=== PATIENT | female | born 1940 | race Caucasian/White ===

== ENCOUNTER 2022-03-21 13:35 | Inpatient (IN) | payer OTHER, MEDICAID ==
[~2022-03-21] VITALS: Ht 157.5 cm; Wt 80.5 kg
[2022-03-21 14:04] VITALS: BP_SYST 103
[2022-03-21] MEDS ORDERED: DULO60CA42 PO (15:28)
[2022-03-21] MEDS ORDERED: PRO40 PO (15:28)
[2022-03-21] MEDS ORDERED: DICL100G19 (15:28)
[2022-03-21] MEDS ORDERED: [UNRECOGNIZED DRUG - CODE] PO (15:28)
[2022-03-21] MEDS ORDERED: LOSA100T3 PO (15:28)
[2022-03-21] MEDS ORDERED: GLIM1TAB PO (15:28)
[2022-03-21] MEDS ORDERED: MAGN400C PO (15:28)
[2022-03-21] MEDS ORDERED: CALC-1312 PO (15:28)
[2022-03-21] MEDS ORDERED: ACET325C6 PO (15:28)
[2022-03-21] MEDS ORDERED: NEOM10DR11 EACH EAR (15:28)
[2022-03-21] MEDS ORDERED: HYG25 PO (15:28)
[2022-03-21] MEDS ORDERED: ISOS30TA9 PO (15:28)
[2022-03-21] MEDS ORDERED: VIT-10 PO (15:28)
[2022-03-21] MEDS ORDERED: TRAM50TA2 (15:28)
[2022-03-21] MEDS ORDERED: IRON PO (15:28)
[2022-03-21] MEDS ORDERED: ROSU10TA2 PO (15:28)
[2022-03-21] MEDS ORDERED: SITA50TA3 PO (15:28)
[2022-03-21] MEDS ORDERED: RESEYE EACH EYE (15:28)
[2022-03-21] MEDS ORDERED: ASPI-524 PO (15:28)
[2022-03-21] MEDS ORDERED: CHOL400T12 PO (15:28)
[2022-03-21] MEDS ORDERED: CYAN250010 (15:28)
[2022-03-21] MEDS ORDERED: APIX2.5T PO (15:28)
[2022-03-21] MEDS ORDERED: KETOROLAC TROMETHAMINE 30 MG VIAL IVP ONE (16:15)
[2022-03-21 16:36] LABS: BASOPHILS % (AUTO) 0.1 % (0.0-2.0); EOSINOPHILS # (AUTO) 0.3 K/uL (0.0-0.4); EOSINOPHILS % (AUTO) 1.4 % (0.0-4.0); HEMATOCRIT 31.4 % (36-48); HEMOGLOBIN 10.5 g/dL (12.0-16.0); LYMPHOCYTES # (AUTO) 1.3 K/uL (1.0-5.5); LYMPHOCYTES % (AUTO) 6.8 % (20.5-51.5); MEAN CORPUSCULAR HEMOGLOBIN 28 pg (27-31); MEAN CORPUSCULAR HGB CONC 34 % (32-36); MEAN CORPUSCULAR VOLUME 83 fL (79.0-98.0); MONOCYTES # (AUTO) 0.9 K/uL (0.0-1.0); MONOCYTES % (AUTO) 4.6 % (1.7-9.3); NEUTROPHILS # (AUTO) 16.9 K/uL (1.8-7.7); NEUTROPHILS % (AUTO) 87.1 % (40.0-70.0); PLATELET COUNT (AUTO) 137 K/uL (130-430); RED CELL DISTRIBUTION WIDTH 14.6 % (9.0-15.0); WHITE BLOOD COUNT (AUTO) 19.4 K/uL (4.8-10.8)
[2022-03-21 16:40] LABS: ANION GAP 18 (5-15); CALCIUM 7.6 mg/dL (8.4-11.0); CHLORIDE 92 mmol/L (98-107); CREATININE 6.13 mg/dL (0.55-1.30); GLUCOSE 255 mg/dL (70-99); POTASSIUM 3.9 mmol/L (3.5-5.1); SODIUM SERUM 127 mmol/L (136-145); UREA NITROGEN, BLOOD 91 mg/dL (8-21)
[2022-03-21 16:45] LABS: ALANINE AMINOTRANSFERASE 15 U/L (12-78); ALBUMIN 1.9 g/dL (3.4-4.8); ASPARTATE AMINOTRANSFERASE 19 U/L (10-37); TOTAL BILIRUBIN 0.6 mg/dL (0.0-1.0)
[2022-03-21 16:49] LABS: BILIRUBIN,URINE 1+ (NEGATIVE); BLOOD, URINE 3+ (NEGATIVE); CLARITY/URINE CLOUDY (CLEAR); COLOR,URINE YELLOW (YELLOW); GLUCOSE,URINE NEGATIVE (NEGATIVE); KETONES,URINE TRACE (NEGATIVE); LEUKOCYTE ESTERASE ,URINE 3+ (NEGATIVE); NITRITE, URINE NEGATIVE (NEGATIVE); PROTEIN URINE 2+ (NEGATIVE); UROBILINOGEN,URINE 0.2 (0.2-1.0)
[2022-03-21 16:53] LABS: BACTERIA,URINE MODERATE /HPF (None Seen); WBC,URINE >100 /HPF (0-3)
[2022-03-21 16:54] LABS: MUCUS,URINE None Seen /LPF (None Seen)
[2022-03-21] MEDS ORDERED: NACL 0.9% 2,000 ML IV ONE (17:15)
[2022-03-21] MEDS ORDERED: cefTRIAXone 1 GM IVPB PREMIX 50 ML IV ONE (17:15)
[2022-03-21] MEDS ORDERED: ACETAMINOPHEN 325 MG TABLET PO ONE (23:30)
[2022-03-21 23:56] VITALS: BP_SYST 101
[2022-03-22] MEDS ORDERED: NS 500 ML IV ONE (02:00)
[2022-03-22 02:02] VITALS: BP_SYST 130
[2022-03-22] MEDS: INSULIN REGULAR, HUMAN 100 UNITS/ML, 10 ML VIAL (humuLIN R) SUBCUT PRN ×2 (02:18→21:23)
[2022-03-22 07:40] VITALS: BP_SYST 104
[2022-03-22 07:41] LABS: ALANINE AMINOTRANSFERASE 15 U/L (12-78); ALBUMIN 1.9 g/dL (3.4-4.8); ANION GAP 17 (5-15); ASPARTATE AMINOTRANSFERASE 25 U/L (10-37); CALCIUM 7.8 mg/dL (8.4-11.0); CHLORIDE 96 mmol/L (98-107); GLUCOSE 125 mg/dL (70-99); POTASSIUM 3.6 mmol/L (3.5-5.1); SODIUM SERUM 129 mmol/L (136-145); TOTAL BILIRUBIN 0.5 mg/dL (0.0-1.0); UREA NITROGEN, BLOOD 98 mg/dL (8-21)
[2022-03-22 07:56] LABS: BASOPHILS # (AUTO) 0.1 K/uL (0.0-0.2)
[2022-03-22 08:06] LABS: BASOPHILS % (AUTO) 0.4 % (0.0-2.0); EOSINOPHILS # (AUTO) 0.2 K/uL (0.0-0.4); EOSINOPHILS % (AUTO) 1.2 % (0.0-4.0); HEMATOCRIT 46.2 % (36-48); HEMOGLOBIN 15.3 g/dL (12.0-16.0); LYMPHOCYTES # (AUTO) 2.3 K/uL (1.0-5.5); LYMPHOCYTES % (AUTO) 16.2 % (20.5-51.5); MEAN CORPUSCULAR HEMOGLOBIN 28 pg (27-31); MEAN CORPUSCULAR HGB CONC 33 % (32-36); MEAN CORPUSCULAR VOLUME 85 fL (79.0-98.0); MONOCYTES # (AUTO) 0.8 K/uL (0.0-1.0); NEUTROPHILS # (AUTO) 10.8 K/uL (1.8-7.7); NEUTROPHILS % (AUTO) 76.2 % (40.0-70.0); PLATELET COUNT (AUTO) 103 K/uL (130-430); RED BLOOD CELL COUNT(AUTO) 5.46 MIL/uL (4.2-6.2); RED CELL DISTRIBUTION WIDTH 15.5 % (9.0-15.0); WHITE BLOOD COUNT (AUTO) 14.2 K/uL (4.8-10.8)
[2022-03-22] MEDS ORDERED: POLYETHYLENE GLYCOL 3350, 17 GM/ POWD.PACK PO ONE (09:15)
[2022-03-22] MEDS: ASPIRIN 325 MG TABLET PO ONE ×2 (09:47→09:58)
[2022-03-22] MEDS: APIXABAN 2.5 MG TABLET PO ONE ×2 (09:50→09:58)
[2022-03-22] MEDS: PIPERACILLIN/TAZO 2.25G/DEX-IS 50 ML IV SCH ×2 (11:46→17:57)
[2022-03-22 12:00] VITALS: BP_SYST 105
[2022-03-22] MEDS: ACETAMINOPHEN 325 MG TABLET PO PRN (15:19)
[2022-03-22 16:00] VITALS: BP_SYST 117
[2022-03-22] MEDS: ALBUMIN HUMAN 5% 250 ML IV SCH (17:51)
[2022-03-22 18:19] LABS: ALBUMIN 1.8 g/dL (3.4-4.8)
[2022-03-22 20:30] VITALS: BP_SYST 111
[2022-03-22] MEDS ORDERED: APIXABAN 2.5 MG TABLET PO SCH (21:00)
[2022-03-22] MEDS: POLYETHYLENE GLYCOL 3350, 17 GM/ POWD.PACK PO SCH (21:14)
[2022-03-22] MEDS: APIXABAN 2.5 MG TABLET PO SCH (21:15)
[2022-03-23] MEDS: PIPERACILLIN/TAZO 2.25G/DEX-IS 50 ML IV SCH ×4 (00:12→18:16)
[2022-03-23 01:35] VITALS: BP_SYST 128
[2022-03-23] MEDS: ALBUMIN HUMAN 5% 250 ML IV SCH ×2 (01:51→10:01)
[2022-03-23 07:50] VITALS: BP_SYST 116
[2022-03-23 09:16] LABS: ANION GAP 14 (5-15); CALCIUM 7.3 mg/dL (8.4-11.0); CHLORIDE 96 mmol/L (98-107); CREATININE 5.14 mg/dL (0.55-1.30); GLUCOSE 106 mg/dL (70-99); POTASSIUM 3.8 mmol/L (3.5-5.1); SODIUM SERUM 127 mmol/L (136-145); UREA NITROGEN, BLOOD 99 mg/dL (8-21)
[2022-03-23 09:21] LABS: ALBUMIN 2.1 g/dL (3.4-4.8); ASPARTATE AMINOTRANSFERASE 16 U/L (10-37)
[2022-03-23] MEDS: ATORVASTATIN 20 MG TABLET PO SCH (10:00)
[2022-03-23] MEDS: ASPIRIN 81 MG TAB.CHEW PO SCH (10:00)
[2022-03-23] MEDS: POLYETHYLENE GLYCOL 3350, 17 GM/ POWD.PACK PO SCH ×2 (10:01→22:15)
[2022-03-23 10:02] LABS: ALANINE AMINOTRANSFERASE 14 U/L (12-78)
[2022-03-23] MEDS: APIXABAN 2.5 MG TABLET PO SCH ×2 (10:05→22:17)
[2022-03-23] MEDS ORDERED: NS 500 ML IV ONE (11:15)
[2022-03-23 12:10] VITALS: BP_SYST 135
[2022-03-23 12:16] LABS: BILIRUBIN,URINE NEGATIVE (NEGATIVE); BLOOD, URINE 3+ (NEGATIVE); CLARITY/URINE TURBID (CLEAR); COLOR,URINE YELLOW (YELLOW); GLUCOSE,URINE NEGATIVE (NEGATIVE); KETONES,URINE NEGATIVE (NEGATIVE); LEUKOCYTE ESTERASE ,URINE 2+ (NEGATIVE); NITRITE, URINE NEGATIVE (NEGATIVE); PROTEIN URINE NEGATIVE (NEGATIVE); UROBILINOGEN,URINE 0.2 (0.2-1.0)
[2022-03-23] MEDS: NACL 0.9% 1,000 ML IV SCH ×2 (12:45→19:15)
[2022-03-23 12:54] LABS: BACTERIA,URINE MANY /HPF (None Seen); MUCUS,URINE 1+ /LPF (None Seen); RBC,URINE 20-50 /HPF (0-3); WBC,URINE 20-50 /HPF (0-3)
[2022-03-23 14:41] LABS: BASOPHILS # (AUTO) 0.1 K/uL (0.0-0.2); BASOPHILS % (AUTO) 0.5 % (0.0-2.0); EOSINOPHILS # (AUTO) 0.2 K/uL (0.0-0.4); EOSINOPHILS % (AUTO) 1.1 % (0.0-4.0); HEMATOCRIT 28.6 % (36-48); HEMOGLOBIN 9.6 g/dL (12.0-16.0); LYMPHOCYTES # (AUTO) 1.8 K/uL (1.0-5.5); LYMPHOCYTES % (AUTO) 10.8 % (20.5-51.5); MEAN CORPUSCULAR HEMOGLOBIN 28 pg (27-31); MEAN CORPUSCULAR HGB CONC 34 % (32-36); MEAN CORPUSCULAR VOLUME 82 fL (79.0-98.0); MONOCYTES # (AUTO) 0.9 K/uL (0.0-1.0); MONOCYTES % (AUTO) 5.2 % (1.7-9.3); NEUTROPHILS # (AUTO) 13.9 K/uL (1.8-7.7); NEUTROPHILS % (AUTO) 82.4 % (40.0-70.0); PLATELET COUNT (AUTO) 151 K/uL (130-430); RED BLOOD CELL COUNT(AUTO) 3.48 MIL/uL (4.2-6.2); RED CELL DISTRIBUTION WIDTH 14.6 % (9.0-15.0); WHITE BLOOD COUNT (AUTO) 16.9 K/uL (4.8-10.8)
[2022-03-23 14:51] LABS: ANION GAP 16 (5-15); CALCIUM 8.4 mg/dL (8.4-11.0); CHLORIDE 95 mmol/L (98-107); CREATININE 4.76 mg/dL (0.55-1.30); GLUCOSE 149 mg/dL (70-99); POTASSIUM 3.8 mmol/L (3.5-5.1); SODIUM SERUM 127 mmol/L (136-145)
[2022-03-23 14:56] LABS: ALANINE AMINOTRANSFERASE 11 U/L (12-78); ALBUMIN 2.5 g/dL (3.4-4.8); ASPARTATE AMINOTRANSFERASE 15 U/L (10-37); TOTAL BILIRUBIN 1.1 mg/dL (0.0-1.0)
[2022-03-23 14:58] LABS: UREA NITROGEN, BLOOD 106 mg/dL (8-21)
[2022-03-23 16:10] VITALS: BP_SYST 130
[2022-03-23] MEDS ORDERED: HEPARIN SODIUM,PORCINE 5,000 UNITS/ML VIAL MC ONE (16:15)
[2022-03-23] MEDS ORDERED: HEPARIN SODIUM,PORCINE 5,000 UNITS/ML VIAL SUBCUT ONE (18:15)
[2022-03-23 19:00] VITALS: BP_SYST 108
[2022-03-23 20:00] VITALS: BP_SYST 108
[2022-03-23] MEDS ORDERED: HEPARIN SODIUM, PORCINE 10,000 UNITS/ 10 ML VIAL IV ONE (21:00)
[2022-03-23] MEDS ORDERED: HEPARIN SODIUM, PORCINE 10,000 UNITS/ 10 ML VIAL ONE (21:15)
[2022-03-24] VITALS: BP_SYST 144
[2022-03-24] MEDS: PIPERACILLIN/TAZO 2.25G/DEX-IS 50 ML IV SCH ×4 (00:06→17:45)
[2022-03-24] MEDS: NITROGLYCERIN 0.4 MG TAB.SUBL SL PRN ×3 (01:25→01:45)
[2022-03-24] MEDS: ACETAMINOPHEN 325 MG TABLET PO PRN (01:29)
[2022-03-24] MEDS ORDERED: NALOXONE HCL 0.4 MG/ML AMP (NARCAN) IVP PRN (02:15)
[2022-03-24] MEDS ORDERED: LORazepam 1 MG TABLET PO ONE (02:15)
[2022-03-24] MEDS: HYDROcodone/ACETAMIN 5-325 MG TAB (NORCO/ VICODIN) PO PRN (02:22)
[2022-03-24] MEDS: NACL 0.9% 1,000 ML IV SCH ×3 (03:15→22:00)
[2022-03-24 07:43] LABS: BASOPHILS # (AUTO) 0.1 K/uL (0.0-0.2); BASOPHILS % (AUTO) 0.4 % (0.0-2.0); EOSINOPHILS # (AUTO) 0.1 K/uL (0.0-0.4); HEMOGLOBIN 8.9 g/dL (12.0-16.0); LYMPHOCYTES # (AUTO) 1.3 K/uL (1.0-5.5); LYMPHOCYTES % (AUTO) 9.1 % (20.5-51.5); MEAN CORPUSCULAR HEMOGLOBIN 28 pg (27-31); MEAN CORPUSCULAR HGB CONC 34 % (32-36); MEAN CORPUSCULAR VOLUME 82 fL (79.0-98.0); MONOCYTES # (AUTO) 0.9 K/uL (0.0-1.0); MONOCYTES % (AUTO) 6.3 % (1.7-9.3); NEUTROPHILS # (AUTO) 12.1 K/uL (1.8-7.7); NEUTROPHILS % (AUTO) 83.2 % (40.0-70.0); PLATELET COUNT (AUTO) 161 K/uL (130-430); RED BLOOD CELL COUNT(AUTO) 3.16 MIL/uL (4.2-6.2); RED CELL DISTRIBUTION WIDTH 14.4 % (9.0-15.0); WHITE BLOOD COUNT (AUTO) 14.5 K/uL (4.8-10.8)
[2022-03-24] MEDS: APIXABAN 2.5 MG TABLET PO SCH ×2 (08:06→22:40)
[2022-03-24] MEDS: ASPIRIN 81 MG TAB.CHEW PO SCH (08:07)
[2022-03-24] MEDS: POLYETHYLENE GLYCOL 3350, 17 GM/ POWD.PACK PO SCH ×2 (08:07→22:38)
[2022-03-24] MEDS: ATORVASTATIN 20 MG TABLET PO SCH (08:07)
[2022-03-24 08:26] LABS: ALANINE AMINOTRANSFERASE 12 U/L (12-78); ANION GAP 10 (5-15); ASPARTATE AMINOTRANSFERASE 16 U/L (10-37); CALCIUM 7.3 mg/dL (8.4-11.0); CHLORIDE 102 mmol/L (98-107); CREATININE 3.05 mg/dL (0.55-1.30); GLUCOSE 140 mg/dL (70-99); PHOSPHORUS 3.5 mg/dL (2.7-4.5); POTASSIUM 4.1 mmol/L (3.5-5.1); SODIUM SERUM 135 mmol/L (136-145); TOTAL BILIRUBIN 1.2 mg/dL (0.0-1.0); UREA NITROGEN, BLOOD 51 mg/dL (8-21)
[2022-03-24] MEDS ORDERED: HEPARIN SODIUM,PORCINE 5,000 UNITS/ML VIAL MC ONE (10:00)
[2022-03-24 12:00] VITALS: BP_SYST 104
[2022-03-24 16:00] VITALS: BP_SYST 145
[2022-03-24] MEDS: SENNOSIDES 8.6 MG TABLET PO SCH (22:38)
[2022-03-25] MEDS: PIPERACILLIN/TAZO 2.25G/DEX-IS 50 ML IV SCH ×4 (00:25→17:51)
[2022-03-25] MEDS: LORazepam 1 MG TABLET PO PRN (00:26)
[2022-03-25 01:07] VITALS: BP_SYST 115
[2022-03-25] MEDS: NACL 0.9% 1,000 ML IV SCH ×3 (05:25→20:16)
[2022-03-25 05:28] VITALS: BP_SYST 120
[2022-03-25 07:52] LABS: ALANINE AMINOTRANSFERASE 13 U/L (12-78); ALBUMIN 2.1 g/dL (3.4-4.8); ANION GAP 9 (5-15); ASPARTATE AMINOTRANSFERASE 16 U/L (10-37); CALCIUM 8.1 mg/dL (8.4-11.0); CHLORIDE 97 mmol/L (98-107); CREATININE 2.16 mg/dL (0.55-1.30); GLUCOSE 154 mg/dL (70-99); POTASSIUM 3.7 mmol/L (3.5-5.1); SODIUM SERUM 131 mmol/L (136-145); UREA NITROGEN, BLOOD 30 mg/dL (8-21)
[2022-03-25 08:00] VITALS: BP_SYST 122
[2022-03-25] MEDS: POLYETHYLENE GLYCOL 3350, 17 GM/ POWD.PACK PO SCH ×2 (09:00→21:39)
[2022-03-25] MEDS: SENNOSIDES 8.6 MG TABLET PO SCH ×2 (09:00→21:37)
[2022-03-25] MEDS: ASPIRIN 81 MG TAB.CHEW PO SCH (09:09)
[2022-03-25] MEDS: APIXABAN 2.5 MG TABLET PO SCH ×2 (09:10→21:39)
[2022-03-25] MEDS: ATORVASTATIN 20 MG TABLET PO SCH (09:11)
[2022-03-25] MEDS: INSULIN REGULAR, HUMAN 100 UNITS/ML, 10 ML VIAL (humuLIN R) SUBCUT PRN ×2 (11:42→17:50)
[2022-03-25 12:23] LABS: URINE SODIUM, RANDOM 30 mmol/L (40-220)
[2022-03-25 12:45] VITALS: BP_SYST 110
[2022-03-25 16:05] VITALS: BP_SYST 117
[2022-03-25 23:22] VITALS: BP_SYST 115
[2022-03-26] VITALS (7 sets, daily range): BP systolic 127–156
[2022-03-26] MEDS: LORazepam 1 MG TABLET PO PRN ×2 (01:10→21:19)
[2022-03-26] MEDS: PIPERACILLIN/TAZO 2.25G/DEX-IS 50 ML IV SCH ×2 (01:22→06:13)
[2022-03-26] MEDS: NACL 0.9% 1,000 ML IV SCH ×3 (03:28→18:33)
[2022-03-26 06:46] LABS: ALANINE AMINOTRANSFERASE 7 U/L (12-78); ALBUMIN 1.9 g/dL (3.4-4.8); ANION GAP 9 (5-15); ASPARTATE AMINOTRANSFERASE 19 U/L (10-37); CALCIUM 7.1 mg/dL (8.4-11.0); CHLORIDE 103 mmol/L (98-107); CREATININE 2.46 mg/dL (0.55-1.30); GLUCOSE 132 mg/dL (70-99); POTASSIUM 4.2 mmol/L (3.5-5.1); SODIUM SERUM 137 mmol/L (136-145); TOTAL BILIRUBIN 0.9 mg/dL (0.0-1.0); UREA NITROGEN, BLOOD 33 mg/dL (8-21)
[2022-03-26] MEDS: ATORVASTATIN 20 MG TABLET PO SCH (08:27)
[2022-03-26] MEDS: APIXABAN 2.5 MG TABLET PO SCH ×2 (08:28→22:28)
[2022-03-26] MEDS: SENNOSIDES 8.6 MG TABLET PO SCH ×2 (08:28→21:00)
[2022-03-26] MEDS: ASPIRIN 81 MG TAB.CHEW PO SCH (08:28)
[2022-03-26] MEDS: POLYETHYLENE GLYCOL 3350, 17 GM/ POWD.PACK PO SCH ×2 (08:28→21:00)
[2022-03-26] MEDS: ACETAMINOPHEN 325 MG TABLET PO PRN (08:55)
[2022-03-26 11:45] LABS: BASOPHILS # (AUTO) 0.1 K/uL (0.0-0.2); BASOPHILS % (AUTO) 0.8 % (0.0-2.0); EOSINOPHILS # (AUTO) 0.2 K/uL (0.0-0.4); EOSINOPHILS % (AUTO) 2.1 % (0.0-4.0); HEMATOCRIT 26.3 % (36-48); HEMOGLOBIN 8.8 g/dL (12.0-16.0); LYMPHOCYTES # (AUTO) 1.6 K/uL (1.0-5.5); LYMPHOCYTES % (AUTO) 15.5 % (20.5-51.5); MEAN CORPUSCULAR HEMOGLOBIN 28 pg (27-31); MEAN CORPUSCULAR HGB CONC 34 % (32-36); MEAN CORPUSCULAR VOLUME 84 fL (79.0-98.0); MONOCYTES # (AUTO) 0.4 K/uL (0.0-1.0); MONOCYTES % (AUTO) 3.6 % (1.7-9.3); PLATELET COUNT (AUTO) 251 K/uL (130-430); RED BLOOD CELL COUNT(AUTO) 3.12 MIL/uL (4.2-6.2); RED CELL DISTRIBUTION WIDTH 14.2 % (9.0-15.0); WHITE BLOOD COUNT (AUTO) 10.2 K/uL (4.8-10.8)
[2022-03-26] MEDS: HYDROcodone/ACETAMIN 5-325 MG TAB (NORCO/ VICODIN) PO PRN (15:41)
[2022-03-26] MEDS: INSULIN REGULAR, HUMAN 100 UNITS/ML, 10 ML VIAL (humuLIN R) SUBCUT PRN (22:27)
[2022-03-27 05:29] VITALS: BP_SYST 143
[2022-03-27] MEDS: NACL 0.9% 1,000 ML IV SCH ×3 (05:42→21:11)
[2022-03-27 07:55] VITALS: BP_SYST 156
[2022-03-27] MEDS: POLYETHYLENE GLYCOL 3350, 17 GM/ POWD.PACK PO SCH ×2 (09:00→21:00)
[2022-03-27] MEDS: SENNOSIDES 8.6 MG TABLET PO SCH ×2 (09:00→21:00)
[2022-03-27] MEDS: ASPIRIN 81 MG TAB.CHEW PO SCH (09:29)
[2022-03-27] MEDS: APIXABAN 2.5 MG TABLET PO SCH ×2 (09:32→21:03)
[2022-03-27] MEDS: ATORVASTATIN 20 MG TABLET PO SCH (09:32)
[2022-03-27 10:20] LABS: ALANINE AMINOTRANSFERASE 6 U/L (12-78); ALBUMIN 1.9 g/dL (3.4-4.8); ANION GAP 7 (5-15); ASPARTATE AMINOTRANSFERASE 22 U/L (10-37); CALCIUM 7.1 mg/dL (8.4-11.0); CHLORIDE 105 mmol/L (98-107); GLUCOSE 138 mg/dL (70-99); SODIUM SERUM 137 mmol/L (136-145); TOTAL BILIRUBIN 0.5 mg/dL (0.0-1.0); UREA NITROGEN, BLOOD 31 mg/dL (8-21)
[2022-03-27 11:56] VITALS: BP_SYST 116
[2022-03-27 16:54] VITALS: BP_SYST 124
[2022-03-27 20:00] VITALS: BP_SYST 149
[2022-03-27] MEDS: ACETAMINOPHEN 325 MG TABLET PO PRN (21:10)
[2022-03-27] MEDS: LORazepam 1 MG TABLET PO PRN (22:13)
[2022-03-28 00:59] VITALS: BP_SYST 126
[2022-03-28 08:00] VITALS: BP_SYST 158
[2022-03-28] MEDS: ATORVASTATIN 20 MG TABLET PO SCH (08:24)
[2022-03-28] MEDS: SENNOSIDES 8.6 MG TABLET PO SCH ×2 (08:24→22:41)
[2022-03-28] MEDS: POLYETHYLENE GLYCOL 3350, 17 GM/ POWD.PACK PO SCH ×2 (08:25→22:40)
[2022-03-28] MEDS: APIXABAN 2.5 MG TABLET PO SCH ×2 (08:25→21:00)
[2022-03-28] MEDS: ASPIRIN 81 MG TAB.CHEW PO SCH (08:25)
[2022-03-28] MEDS ORDERED: levETIRAcetam 1,500 MG in NS 85 ML IV SCH (09:00)
[2022-03-28 10:12] LABS: ANION GAP 5 (5-15); CALCIUM 7.4 mg/dL (8.4-11.0); CHLORIDE 104 mmol/L (98-107); CREATININE 2.04 mg/dL (0.55-1.30); GLUCOSE 129 mg/dL (70-99); POTASSIUM 4.1 mmol/L (3.5-5.1); SODIUM SERUM 135 mmol/L (136-145); UREA NITROGEN, BLOOD 28 mg/dL (8-21)
[2022-03-28] MEDS: CARVEDILOL 3.125 MG TABLET (COREG) PO SCH ×2 (10:23→22:39)
[2022-03-28] MEDS: LORazepam 1 MG TABLET PO PRN (12:36)
[2022-03-28 12:40] VITALS: BP_SYST 125
[2022-03-28] MEDS ORDERED: COR3.125 PO (15:48)
[2022-03-28] MEDS ORDERED: LIP20 PO (15:48)
[2022-03-28 16:06] VITALS: BP_SYST 124
[2022-03-28 18:00] VITALS: BP_SYST 124
[2022-03-28] MEDS: ALBUTEROL SULFATE 0.083% 2.5 MG/3 ML VIAL.NEB INH PRN (18:21)
[2022-03-29] MEDS: LORazepam 1 MG TABLET PO PRN ×2 (00:56→14:48)
[2022-03-29] MEDS: NACL 0.9% 1,000 ML IV SCH ×2 (05:14→11:36)
[2022-03-29 07:33] LABS: BASOPHILS # (AUTO) 0.1 K/uL (0.0-0.2); EOSINOPHILS # (AUTO) 0.2 K/uL (0.0-0.4); EOSINOPHILS % (AUTO) 2.4 % (0.0-4.0); HEMATOCRIT 28.9 % (36-48); HEMOGLOBIN 9.6 g/dL (12.0-16.0); LYMPHOCYTES % (AUTO) 20.5 % (20.5-51.5); MEAN CORPUSCULAR HEMOGLOBIN 28 pg (27-31); MEAN CORPUSCULAR HGB CONC 33 % (32-36); MEAN CORPUSCULAR VOLUME 85 fL (79.0-98.0); MONOCYTES # (AUTO) 0.6 K/uL (0.0-1.0); MONOCYTES % (AUTO) 5.9 % (1.7-9.3); NEUTROPHILS # (AUTO) 6.7 K/uL (1.8-7.7); NEUTROPHILS % (AUTO) 70.2 % (40.0-70.0); PLATELET COUNT (AUTO) 403 K/uL (130-430); RED CELL DISTRIBUTION WIDTH 14.5 % (9.0-15.0); WHITE BLOOD COUNT (AUTO) 9.6 K/uL (4.8-10.8)
[2022-03-29 08:00] VITALS: BP_SYST 156
[2022-03-29 08:03] LABS: ANION GAP 9 (5-15); CALCIUM 7.8 mg/dL (8.4-11.0); CHLORIDE 104 mmol/L (98-107); CREATININE 1.83 mg/dL (0.55-1.30); GLUCOSE 153 mg/dL (70-99); POTASSIUM 4.3 mmol/L (3.5-5.1); SODIUM SERUM 136 mmol/L (136-145); UREA NITROGEN, BLOOD 26 mg/dL (8-21)
[2022-03-29] MEDS: ASPIRIN 81 MG TAB.CHEW PO SCH (08:23)
[2022-03-29] MEDS: ATORVASTATIN 20 MG TABLET PO SCH (08:24)
[2022-03-29] MEDS: CARVEDILOL 3.125 MG TABLET (COREG) PO SCH ×2 (08:24→22:32)
[2022-03-29] MEDS: SENNOSIDES 8.6 MG TABLET PO SCH ×2 (08:26→22:27)
[2022-03-29] MEDS: POLYETHYLENE GLYCOL 3350, 17 GM/ POWD.PACK PO SCH ×2 (08:26→22:27)
[2022-03-29] MEDS: APIXABAN 2.5 MG TABLET PO SCH ×2 (08:27→22:30)
[2022-03-29] MEDS ORDERED: CARVEDILOL 3.125 MG TABLET (COREG) PO ONE (09:30)
[2022-03-29] MEDS ORDERED: IPRATROPIUM/ALBUTEROL SULFATE 3 ML AMPUL.NEB (DUONEB) INH ONE (09:45)
[2022-03-29 12:01] VITALS: BP_SYST 127
[2022-03-29 14:00] VITALS: BP_SYST 133
[2022-03-29] MEDS: ALBUTEROL SULFATE 0.083% 2.5 MG/3 ML VIAL.NEB INH PRN (14:11)
[2022-03-29] MEDS: NITROGLYCERIN 0.4 MG TAB.SUBL SL PRN ×3 (14:27→14:41)
[2022-03-29 14:28] VITALS: BP_SYST 129
[2022-03-29] MEDS: ONDANSETRON HCL 4 MG/2 ML VIAL IVP PRN (14:29)
[2022-03-29 14:52] VITALS: BP_SYST 123
[2022-03-29 21:00] VITALS: BP_SYST 135
[2022-03-29] MEDS: INSULIN REGULAR, HUMAN 100 UNITS/ML, 10 ML VIAL (humuLIN R) SUBCUT PRN (22:29)
[2022-03-30] MEDS: LORazepam 1 MG TABLET PO PRN ×2 (01:39→21:45)
[2022-03-30 02:00] VITALS: BP_SYST 129
[2022-03-30] MEDS: INSULIN REGULAR, HUMAN 100 UNITS/ML, 10 ML VIAL (humuLIN R) SUBCUT PRN ×2 (06:49→23:21)
[2022-03-30 07:38] VITALS: BP_SYST 138
[2022-03-30] MEDS: CARVEDILOL 3.125 MG TABLET (COREG) PO SCH ×2 (08:16→21:48)
[2022-03-30] MEDS: ATORVASTATIN 20 MG TABLET PO SCH (08:17)
[2022-03-30] MEDS: ASPIRIN 81 MG TAB.CHEW PO SCH (08:17)
[2022-03-30] MEDS: APIXABAN 2.5 MG TABLET PO SCH ×2 (08:18→21:49)
[2022-03-30] MEDS: POLYETHYLENE GLYCOL 3350, 17 GM/ POWD.PACK PO SCH ×2 (08:27→23:18)
[2022-03-30] MEDS: SENNOSIDES 8.6 MG TABLET PO SCH ×2 (08:27→21:48)
[2022-03-30 09:01] LABS: BASOPHILS # (AUTO) 0.1 K/uL (0.0-0.2); BASOPHILS % (AUTO) 1.3 % (0.0-2.0); EOSINOPHILS # (AUTO) 0.2 K/uL (0.0-0.4); EOSINOPHILS % (AUTO) 2.4 % (0.0-4.0); HEMATOCRIT 26.1 % (36-48); HEMOGLOBIN 8.5 g/dL (12.0-16.0); LYMPHOCYTES # (AUTO) 1.9 K/uL (1.0-5.5); LYMPHOCYTES % (AUTO) 23.4 % (20.5-51.5); MEAN CORPUSCULAR HEMOGLOBIN 28 pg (27-31); MEAN CORPUSCULAR HGB CONC 33 % (32-36); MEAN CORPUSCULAR VOLUME 87 fL (79.0-98.0); MONOCYTES # (AUTO) 0.6 K/uL (0.0-1.0); MONOCYTES % (AUTO) 7.8 % (1.7-9.3); NEUTROPHILS # (AUTO) 5.3 K/uL (1.8-7.7); NEUTROPHILS % (AUTO) 65.1 % (40.0-70.0); PLATELET COUNT (AUTO) 392 K/uL (130-430); RED BLOOD CELL COUNT(AUTO) 2.99 MIL/uL (4.2-6.2); RED CELL DISTRIBUTION WIDTH 14.7 % (9.0-15.0); WHITE BLOOD COUNT (AUTO) 8.1 K/uL (4.8-10.8)
[2022-03-30 09:47] LABS: ANION GAP 9 (5-15); CALCIUM 8.5 mg/dL (8.4-11.0); CHLORIDE 107 mmol/L (98-107); GLUCOSE 153 mg/dL (70-99); POTASSIUM 4.3 mmol/L (3.5-5.1); SODIUM SERUM 137 mmol/L (136-145); UREA NITROGEN, BLOOD 25 mg/dL (8-21)
[2022-03-30] MEDS: ONDANSETRON HCL 4 MG/2 ML VIAL IVP PRN (11:33)
[2022-03-30 12:00] VITALS: BP_SYST 103
[2022-03-30 16:00] VITALS: BP_SYST 129
[2022-03-30] MEDS: NACL 0.9% 1,000 ML IV SCH (18:10)
[2022-03-30 20:00] VITALS: BP_SYST 130
[2022-03-30] MEDS: NITROGLYCERIN 0.4 MG TAB.SUBL SL PRN (20:40)
[2022-03-30 20:43] VITALS: BP_SYST 130
[2022-03-31 00:37] VITALS: BP_SYST 130
[2022-03-31 07:29] LABS: BASOPHILS # (AUTO) 0.1 K/uL (0.0-0.2); BASOPHILS % (AUTO) 1.4 % (0.0-2.0); EOSINOPHILS # (AUTO) 0.2 K/uL (0.0-0.4); EOSINOPHILS % (AUTO) 2.2 % (0.0-4.0); HEMATOCRIT 25.2 % (36-48); HEMOGLOBIN 8.5 g/dL (12.0-16.0); LYMPHOCYTES # (AUTO) 1.7 K/uL (1.0-5.5); LYMPHOCYTES % (AUTO) 20.9 % (20.5-51.5); MEAN CORPUSCULAR HEMOGLOBIN 29 pg (27-31); MEAN CORPUSCULAR HGB CONC 34 % (32-36); MEAN CORPUSCULAR VOLUME 85 fL (79.0-98.0); MONOCYTES # (AUTO) 0.6 K/uL (0.0-1.0); MONOCYTES % (AUTO) 6.8 % (1.7-9.3); NEUTROPHILS # (AUTO) 5.6 K/uL (1.8-7.7); NEUTROPHILS % (AUTO) 68.7 % (40.0-70.0); PLATELET COUNT (AUTO) 409 K/uL (130-430); RED BLOOD CELL COUNT(AUTO) 2.96 MIL/uL (4.2-6.2); RED CELL DISTRIBUTION WIDTH 14.2 % (9.0-15.0); WHITE BLOOD COUNT (AUTO) 8.1 K/uL (4.8-10.8)
[2022-03-31 08:00] VITALS: BP_SYST 134
[2022-03-31 08:09] LABS: ANION GAP 8 (5-15); CALCIUM 7.9 mg/dL (8.4-11.0); CHLORIDE 105 mmol/L (98-107); CREATININE 1.74 mg/dL (0.55-1.30); GLUCOSE 129 mg/dL (70-99); POTASSIUM 4.2 mmol/L (3.5-5.1); SODIUM SERUM 136 mmol/L (136-145); UREA NITROGEN, BLOOD 22 mg/dL (8-21)
[2022-03-31] MEDS: ATORVASTATIN 20 MG TABLET PO SCH (08:22)
[2022-03-31] MEDS: ASPIRIN 81 MG TAB.CHEW PO SCH (08:22)
[2022-03-31] MEDS: CARVEDILOL 3.125 MG TABLET (COREG) PO SCH ×2 (08:22→20:36)
[2022-03-31] MEDS: SENNOSIDES 8.6 MG TABLET PO SCH ×2 (08:23→20:35)
[2022-03-31] MEDS: POLYETHYLENE GLYCOL 3350, 17 GM/ POWD.PACK PO SCH ×3 (08:23→20:34)
[2022-03-31] MEDS: APIXABAN 2.5 MG TABLET PO SCH ×2 (08:28→20:37)
[2022-03-31 12:00] VITALS: BP_SYST 128
[2022-03-31] MEDS: NACL 0.9% 1,000 ML IV SCH (14:45)
[2022-03-31 16:00] VITALS: BP_SYST 128
[2022-03-31] MEDS: LORazepam 1 MG TABLET PO PRN (16:09)
[2022-03-31] MEDS: INSULIN REGULAR, HUMAN 100 UNITS/ML, 10 ML VIAL (humuLIN R) SUBCUT PRN (16:50)
[2022-03-31 19:00] VITALS: BP_SYST 143
[2022-04-01] VITALS (7 sets, daily range): BP systolic 140–164
[2022-04-01] MEDS: LORazepam 1 MG TABLET PO PRN ×2 (01:37→20:39)
[2022-04-01] MEDS: NACL 0.9% 1,000 ML IV SCH (01:45)
[2022-04-01 06:00] LABS: BASOPHILS # (AUTO) 0.1 K/uL (0.0-0.2); BASOPHILS % (AUTO) 1.4 % (0.0-2.0); EOSINOPHILS # (AUTO) 0.2 K/uL (0.0-0.4); HEMATOCRIT 23.5 % (36-48); HEMOGLOBIN 7.8 g/dL (12.0-16.0); LYMPHOCYTES % (AUTO) 25.2 % (20.5-51.5); MEAN CORPUSCULAR HEMOGLOBIN 28 pg (27-31); MEAN CORPUSCULAR HGB CONC 33 % (32-36); MEAN CORPUSCULAR VOLUME 85 fL (79.0-98.0); MONOCYTES # (AUTO) 0.5 K/uL (0.0-1.0); MONOCYTES % (AUTO) 6.8 % (1.7-9.3); NEUTROPHILS # (AUTO) 5.1 K/uL (1.8-7.7); NEUTROPHILS % (AUTO) 64.6 % (40.0-70.0); PLATELET COUNT (AUTO) 398 K/uL (130-430); RED BLOOD CELL COUNT(AUTO) 2.78 MIL/uL (4.2-6.2); RED CELL DISTRIBUTION WIDTH 14.7 % (9.0-15.0); WHITE BLOOD COUNT (AUTO) 7.8 K/uL (4.8-10.8)
[2022-04-01 06:46] LABS: ANION GAP 9 (5-15); CALCIUM 7.4 mg/dL (8.4-11.0); CHLORIDE 105 mmol/L (98-107); CREATININE 1.61 mg/dL (0.55-1.30); GLUCOSE 143 mg/dL (70-99); POTASSIUM 4.1 mmol/L (3.5-5.1); SODIUM SERUM 138 mmol/L (136-145); UREA NITROGEN, BLOOD 19 mg/dL (8-21)
[2022-04-01] MEDS: SENNOSIDES 8.6 MG TABLET PO SCH ×3 (09:00→20:35)
[2022-04-01] MEDS: POLYETHYLENE GLYCOL 3350, 17 GM/ POWD.PACK PO SCH ×2 (09:00→20:35)
[2022-04-01] MEDS: ATORVASTATIN 20 MG TABLET PO SCH (09:34)
[2022-04-01] MEDS: ASPIRIN 81 MG TAB.CHEW PO SCH (09:35)
[2022-04-01] MEDS: APIXABAN 2.5 MG TABLET PO SCH ×2 (09:40→20:36)
[2022-04-01] MEDS ORDERED: CARVEDILOL 12.5 MG TABLET (COREG) PO ONE (17:30)
[2022-04-01] MEDS ORDERED: DOXYCYCLINE HYCLATE 100 MG CAPSULE PO SCH (18:00)
[2022-04-01] MEDS: ACETAMINOPHEN 325 MG TABLET PO PRN (20:46)
[2022-04-01] MEDS ORDERED: CARVEDILOL 3.125 MG TABLET (COREG) PO SCH (21:00)
[2022-04-01] MEDS: HYDROcodone/ACETAMIN 5-325 MG TAB (NORCO/ VICODIN) PO PRN (23:33)
== END 2022-04-02 00:05 | DRG 871 ==
LOC: SED 13:35 → STU 17:18
PROVIDERS: ADMIT Student in an Organized Health Care Education/Training Program; ATTEND Student in an Organized Health Care Education/Training Program
PROC: 02HV33Z Insertion of Infusion Device into Superior Vena Cava, Percutaneous Approach (ICD-10-PCS; principal; 2022-03-23)
PROC: B548ZZA Ultrasonography of Superior Vena Cava, Guidance (ICD-10-PCS; 2022-03-23)
PROC: 5A1D70Z Performance of Urinary Filtration, Intermittent, Less than 6 Hours Per Day (ICD-10-PCS; 2022-03-23)
PROC: 02PYX3Z Removal of Infusion Device from Great Vessel, External Approach (ICD-10-PCS; 2022-03-23)
PROC: 5A1D70Z Performance of Urinary Filtration, Intermittent, Less than 6 Hours Per Day (ICD-10-PCS; 2022-03-24)
DX: A41.50 Gram-negative sepsis, unspecified (principal); J18.9 Pneumonia, unspecified organism; J96.01 Acute respiratory failure with hypoxia; N17.0 Acute kidney failure with tubular necrosis; N39.0 Urinary tract infection, site not specified; E87.1 Hypo-osmolality and hyponatremia; I12.0 Hypertensive chronic kidney disease with stage 5 chronic kidney disease or end stage renal disease; N18.5 Chronic kidney disease, stage 5; I48.20 Chronic atrial fibrillation, unspecified; E87.2 Acidosis; M79.7 Fibromyalgia; E88.09 Other disorders of plasma-protein metabolism, not elsewhere classified; E78.5 Hyperlipidemia, unspecified; Z96.651 Presence of right artificial knee joint; I25.10 Atherosclerotic heart disease of native coronary artery without angina pectoris; Z20.822 Contact with and (suspected) exposure to COVID-19; E11.22 Type 2 diabetes mellitus with diabetic chronic kidney disease; E87.70 Fluid overload, unspecified; K80.20 Calculus of gallbladder without cholecystitis without obstruction; Z88.8 Allergy status to other drugs, medicaments and biological substances; Z79.899 Other long term (current) drug therapy; Z95.1 Presence of aortocoronary bypass graft; Z90.710 Acquired absence of both cervix and uterus; Z87.440 Personal history of urinary (tract) infections; Z79.84 Long term (current) use of oral hypoglycemic drugs; Z79.82 Long term (current) use of aspirin; Z79.01 Long term (current) use of anticoagulants
CPT/HCPCS: 36415; 71045; 76376; 76770; 80048; 80053; 81000; 82040; 82550; 82570; 82962; 83605; 83735; 83880; 84100; 84302; 84484; 85025; 87040; 87086; 90935; 90937; 93005; 93306; 94640; 96374; 97110-GP; 97116-GP; 97530-GP; 99291; G0378; J0696; J1644; J1815; J1885; J2405; J2543; J7060; J7613; P9041